=== PATIENT | female | born 1960 | race Caucasian/White ===

== ENCOUNTER → 2020-08-12 | Outpatient (CLI) | payer OTHER ==
[~2020-08-12] MED LIST: AMLODIPINE BESYL5 MG PO; BUSPIRONE HCL7.5 MG PO; DULOXETINE HCL60 MG PO; FUROSEMIDE40 MG PO; GABAPENTIN600 MG PO; LIPITOR40 MG PO; PLAQUENIL 200200 MG PO; REGLAN10 MG PO; TOUJEO MAX300 UNIT/1 SQ; TRULANCE3 MG PO; ZESTRIL40 MG PO
== END ==
LOC: KOH-I 08-08 11:00
DX: M54.5 Low back pain (principal); M51.37 Other intervertebral disc degeneration, lumbosacral region; M48.07 Spinal stenosis, lumbosacral region
CPT/HCPCS: 72131

== ENCOUNTER → 2020-08-15 | Outpatient (CLI) | payer OTHER ==
[2020-08-15 11:49] LABS: HEMOGLOBIN 10.6 gm/dl (12.3-15.3); RED BLOOD COUNT 3.79 M/UL (4.00-5.10); WHITE BLOOD COUNT 7.2 K/UL (4.5-11.0)
== END ==
LOC: EDSTATUS 10:30 → OPSV2 10:30
PROVIDERS: Orthopaedic Surgery
DX: Z01.818 Encounter for other preprocedural examination (principal); M51.16 Intervertebral disc disorders with radiculopathy, lumbar region
CPT/HCPCS: 36415; 80048; 83036; 85027; 87086; 93005

== ENCOUNTER → 2020-09-16 | Outpatient (CLI) | payer OTHER ==
[2020-09-16 12:07] LABS: HEMOGLOBIN 10.2 gm/dl (12.3-15.3); RED BLOOD COUNT 3.7 M/UL (4.00-5.10); WHITE BLOOD COUNT 4.4 K/UL (4.5-11.0)
[2020-09-16 12:27] LABS: BUN/CREATININE RATIO 29 (0-10)
== END ==
LOC: OPSV2 10:59
PROVIDERS: Orthopaedic Surgery
DX: Z01.818 Encounter for other preprocedural examination (principal); M51.17 Intervertebral disc disorders with radiculopathy, lumbosacral region; R91.8 Other nonspecific abnormal finding of lung field
CPT/HCPCS: 36415; 71046; 80048; 81001; 85027; 85610; 85730; 86850; 86900; 86901; 87086; 93005

== ENCOUNTER 2020-09-17 06:13 | Day surgery (SDC) | payer OTHER ==
[~2020-09-17] VITALS: Ht 160 cm; Wt 56.2 kg
[~2020-09-17 06:13] MED LIST changes: -AMLODIPINE BESYL5 MG PO; -BUSPIRONE HCL7.5 MG PO; -DULOXETINE HCL60 MG PO; -FUROSEMIDE40 MG PO; -GABAPENTIN600 MG PO; -LIPITOR40 MG PO; -PLAQUENIL 200200 MG PO; -TOUJEO MAX300 UNIT/1 SQ; -TRULANCE3 MG PO; -ZESTRIL40 MG PO
[2020-09-17] MEDS ORDERED: TRULANCE3 MG PO (06:57)
[2020-09-17] MEDS ORDERED: TOUJEO MAX300 UNIT/1 SQ (06:57)
[2020-09-17] MEDS ORDERED: AMLODIPINE BESYL5 MG PO (06:58)
[2020-09-17] MEDS ORDERED: DULOXETINE HCL60 MG PO (06:59)
[2020-09-17] MEDS ORDERED: ZESTRIL40 MG PO (07:00)
[2020-09-17] MEDS ORDERED: PLAQUENIL 200200 MG PO (07:01)
[2020-09-17] MEDS ORDERED: GABAPENTIN600 MG PO (07:02)
[2020-09-17] MEDS ORDERED: BUSPIRONE HCL7.5 MG PO (07:02)
[2020-09-17] MEDS ORDERED: FUROSEMIDE40 MG PO (07:03)
[2020-09-17] MEDS ORDERED: LIPITOR40 MG PO (07:03)
== END 2020-09-18 13:46 | disposition home or self-care (01) ==
LOC: OR 06:13 → M/S 17:00 → OR 09-18 13:46
PROVIDERS: Orthopaedic Surgery
PROC: 01NB3ZZ Release Lumbar Nerve, Percutaneous Approach (ICD-10-PCS; principal; 2020-09-17 07:30)
DX: M51.27 Other intervertebral disc displacement, lumbosacral region (principal); M54.16 Radiculopathy, lumbar region; I10 Essential (primary) hypertension; E78.5 Hyperlipidemia, unspecified; M32.9 Systemic lupus erythematosus, unspecified; F41.9 Anxiety disorder, unspecified; E11.9 Type 2 diabetes mellitus without complications; D64.9 Anemia, unspecified; F32.9 Major depressive disorder, single episode, unspecified; G62.9 Polyneuropathy, unspecified; Z86.16 Personal history of COVID-19; Z79.899 Other long term (current) drug therapy; Z95.5 Presence of coronary angioplasty implant and graft; Z79.4 Long term (current) use of insulin
CPT/HCPCS: 72100; 76000; 82962; J0690; J1040; J1100; J2001; J2250; J2405; J2550; J2704; J2710; J3010; J3370; J7030; J7120